=== PATIENT | female | born 1965 | race Caucasian/White ===

== ENCOUNTER 2017-09-02 18:05 | Inpatient (IN) | payer SELFPAY ==
[~2017-09-02] VITALS: Ht 172.7 cm; Wt 60.8 kg
[~2017-09-02 18:05] MED LIST: MOTRIN800 MG PO; NAPROSYN500 MG PO; PREDNICOT20 MG PO; ULTRAM50 MG PO; VIBRAMYCIN100 MG PO; VOLTAREN50 MG PO
[2017-09-02 18:11] VITALS: BP 136/57
[2017-09-02 18:51] LABS: BASO % 0.3 % (0.0-1.0); EOS # 0.2 10*3/uL (0.0-0.4); EOS % 2.1 % (1.0-4.0); HEMATOCRIT 43.8 % (37.0-47.0); HEMOGLOBIN 15.2 g/dl (12.0-16.0); LYMPH # 0.6 10*3/uL (1.3-4.4); LYMPH % 5.3 % (27.0-41.0); MEAN CELL VOLUME 89.4 fl (81.0-99.0); MEAN CORPUSCULAR HGB CONC 34.7 g/dl (33.0-37.0); MEAN PLATELET VOLUME 9.9 fl (9.6-12.3); MONO # 0.6 10*3/uL (0.1-1.0); MONO % 5.2 % (3.0-9.0); NEUT # 9.8 10*3/uL (2.3-7.9); NEUT % 86.7 % (47.0-73.0); PLATELET COUNT AUTOMATED 232 10*3/uL (130-400); RED CELL DISTRI WIDTH 12.8 % (0-14.5); WHITE BLOOD COUNT 11.3 10*3/uL (4.8-10.8)
[2017-09-02 19:06] LABS: ALBUMIN 3.5 gm/dl (3.1-4.5); ALKALINE PHOSPHATASE 55 U/L (45-117); BUN 5 mg/dl (7-24); CHLORIDE 104 mmol/L (98-107); CREATININE 0.75 mg/dL (0.55-1.02); POTASSIUM 3.8 mmol/L (3.5-5.1); SGOT/AST 20 IU/L (3-35); SGPT/ALT 17 U/L (12-78); SODIUM 137 mmol/L (136-145); TOTAL PROTEIN 6.6 gm/dL (6.4-8.2)
[2017-09-02 19:55] VITALS: BP 122/65
[2017-09-02 20:45] VITALS: BP 125/65
[2017-09-03] VITALS: BP 107/54
[2017-09-03 02:20] LABS: BILIRUBIN NEGATIVE (NEGATIVE); BLOOD TRACE-INTACT (NEGATIVE); CLARITY CLEAR (CLEAR); COLOR YELLOW (YELLOW); GLUCOSE NEGATIVE (NEGATIVE); KETONE NEGATIVE (NEGATIVE); LEUKO ESTERASE NEGATIVE (NEGATIVE); NITRITE NEGATIVE (NEGATIVE); PH 5.5 (5.0-9.0); UROBILINOGEN 0.2 E.U./dl (0.2-1.0)
[2017-09-03 02:30] LABS: EPITHELIAL CELLS 15-20
[2017-09-03 02:31] LABS: BACTERIA TRACE
[2017-09-03 07:04] LABS: BASO % 0.2 % (0.0-1.0); EOS # 0.1 10*3/uL (0.0-0.4); EOS % 0.6 % (1.0-4.0); LYMPH # 1.2 10*3/uL (1.3-4.4); LYMPH % 9.9 % (27.0-41.0); MEAN CELL VOLUME 89.9 fl (81.0-99.0); MEAN CORPUSCULAR HGB 30.8 pg (27.0-31.0); MEAN CORPUSCULAR HGB CONC 34.2 g/dl (33.0-37.0); MEAN PLATELET VOLUME 9.8 fl (9.6-12.3); MONO # 0.9 10*3/uL (0.1-1.0); MONO % 6.9 % (3.0-9.0); NEUT # 10.3 10*3/uL (2.3-7.9); NEUT % 81.8 % (47.0-73.0); PLATELET COUNT AUTOMATED 182 10*3/uL (130-400); RED BLOOD COUNT 4.06 10*6/uL (4.10-5.10); RED CELL DISTRI WIDTH 12.9 % (0-14.5); WHITE BLOOD COUNT 12.5 10*3/uL (4.8-10.8)
[2017-09-03 07:08] LABS: HEMATOCRIT 36.5 % (37.0-47.0); HEMOGLOBIN 12.5 g/dl (12.0-16.0)
[2017-09-03 07:26] LABS: BUN 8 mg/dl (7-24); CHLORIDE 107 mmol/L (98-107); CHOLESTEROL 91 mg/dL (<200); CREATININE 0.71 mg/dL (0.55-1.02); POTASSIUM 4.1 mmol/L (3.5-5.1); SODIUM 140 mmol/L (136-145); TRIGLYCERIDES 35 mg/dl (<150); VLDL CHOLESTEROL 7 mg/dL (6-40)
[2017-09-03 07:28] LABS: ACT PARTIAL THROMBO TIME 31.4 SECONDS (20.8-31.5); INTERNATIONAL NORM RATIO 1.3 (2.0-3.5)
[2017-09-03 07:35] LABS: HDL CHOLESTEROL 38 mg/dl (40-60); LDL CHOLESTEROL 46 mg/dL (9-159); THYROID STIM HORMONE (HS) 0.272 uIU/ml (0.358-4.75)
[2017-09-03 08:00] VITALS: BP 112/66
[2017-09-03 08:15] LABS: VITAMIN D, 25-HYDROXY 11.1 ng/mL (30-100)
[2017-09-03 12:00] VITALS: BP 153/79
[2017-09-03 16:00] VITALS: BP 120/67
[2017-09-03 20:00] VITALS: BP 93/46
[2017-09-04] VITALS: BP 120/64
[2017-09-04 08:00] VITALS: BP 122/78
[2017-09-04 09:11] LABS: BASO % 0.3 % (0.0-1.0); EOS # 0.1 10*3/uL (0.0-0.4); EOS % 0.9 % (1.0-4.0); HEMATOCRIT 31.4 % (37.0-47.0); HEMOGLOBIN 10.9 g/dl (12.0-16.0); LYMPH # 0.7 10*3/uL (1.3-4.4); LYMPH % 9.8 % (27.0-41.0); MEAN CELL VOLUME 89.7 fl (81.0-99.0); MEAN CORPUSCULAR HGB 31.1 pg (27.0-31.0); MEAN CORPUSCULAR HGB CONC 34.7 g/dl (33.0-37.0); MEAN PLATELET VOLUME 9.6 fl (9.6-12.3); MONO # 0.4 10*3/uL (0.1-1.0); MONO % 5.6 % (3.0-9.0); NEUT # 6.3 10*3/uL (2.3-7.9); NEUT % 83.1 % (47.0-73.0); PLATELET COUNT AUTOMATED 166 10*3/uL (130-400); RED CELL DISTRI WIDTH 13.1 % (0-14.5); WHITE BLOOD COUNT 7.6 10*3/uL (4.8-10.8)
[2017-09-04 09:25] LABS: ALKALINE PHOSPHATASE 44 U/L (45-117); BUN 5 mg/dl (7-24); CHLORIDE 106 mmol/L (98-107); CREATININE 0.67 mg/dL (0.55-1.02); POTASSIUM 3.2 mmol/L (3.5-5.1); SGOT/AST 11 IU/L (3-35); SGPT/ALT 14 U/L (12-78); SODIUM 137 mmol/L (136-145); TOTAL PROTEIN 5.9 gm/dL (6.4-8.2)
[2017-09-04] MEDS ORDERED: LEVAQUIN750 M1 PO (10:51)
[2017-09-04] MEDS ORDERED: PAROXETINE HCL20 MG PO (10:53)
[2017-09-04] MEDS ORDERED: VITAMIN D5000 UNI1 PO (10:53)
[2017-09-04] MEDS ORDERED: IBU800 M1 PO (10:53)
[2017-09-04] MEDS ORDERED: Vitamin D PO (10:53)
[2017-09-04] MEDS ORDERED: PREDNISONE10 MG PO (11:12)
== END 2017-09-04 12:29 | disposition home or self-care (01) | DRG 871 ==
LOC: ED 18:05 → 4E 19:47 → EDHOLD 19:47 → 4E 20:08
PROVIDERS: Internal Medicine; Nurse Practitioner Family; Registered Nurse
DX: A41.9 Sepsis, unspecified organism (principal); J15.6 Pneumonia due to other Gram-negative bacteria; G93.41 Metabolic encephalopathy; F32.9 Major depressive disorder, single episode, unspecified; E55.9 Vitamin D deficiency, unspecified; E87.6 Hypokalemia; R09.02 Hypoxemia; F41.9 Anxiety disorder, unspecified; J44.9 Chronic obstructive pulmonary disease, unspecified; M25.551 Pain in right hip; M25.552 Pain in left hip; F17.210 Nicotine dependence, cigarettes, uncomplicated; Z98.891 History of uterine scar from previous surgery; Z98.51 Tubal ligation status; Z87.81 Personal history of (healed) traumatic fracture; Z71.6 Tobacco abuse counseling; Z79.899 Other long term (current) drug therapy

== ENCOUNTER → 2017-09-11 | Outpatient (CLI) | payer SELFPAY ==
[~2017-09-11] MED LIST changes: +IBU800 M1 PO; +LEVAQUIN750 M1 PO; +PAROXETINE HCL20 MG PO; +PREDNISONE10 MG PO; +VITAMIN D5000 UNI1 PO; +Vitamin D PO
== END | disposition home or self-care (01) ==
LOC: RESCLI 03:53
DX: Z09 Encounter for follow-up examination after completed treatment for conditions other than malignant neoplasm (principal); Z12.31 Encounter for screening mammogram for malignant neoplasm of breast; J43.9 Emphysema, unspecified; E55.9 Vitamin D deficiency, unspecified; E87.6 Hypokalemia; D64.9 Anemia, unspecified; R63.6 Underweight; M25.552 Pain in left hip; M25.551 Pain in right hip; G47.00 Insomnia, unspecified; F41.1 Generalized anxiety disorder; I95.1 Orthostatic hypotension; E86.0 Dehydration; R00.0 Tachycardia, unspecified; Z76.89 Persons encountering health services in other specified circumstances; Z71.6 Tobacco abuse counseling; Z72.0 Tobacco use

== ENCOUNTER 2017-12-16 18:02 | Emergency (ER) | payer SELFPAY ==
[~2017-12-16] VITALS: Ht 172.7 cm; Wt 45.4 kg
[2017-12-16 18:27] LABS: HEMATOCRIT 45.3 % (37.0-47.0); HEMOGLOBIN 15.2 g/dl (12.0-16.0); MEAN CELL VOLUME 91.5 fl (81.0-99.0); MEAN CORPUSCULAR HGB 30.7 pg (27.0-31.0); MEAN CORPUSCULAR HGB CONC 33.6 g/dl (33.0-37.0); MEAN PLATELET VOLUME 10.1 fl (9.6-12.3); PLATELET COUNT AUTOMATED 431 10*3/uL (130-400); RED BLOOD COUNT 4.95 10*6/uL (4.10-5.10); RED CELL DISTRI WIDTH 14.1 % (0-14.5); WHITE BLOOD COUNT 12.9 10*3/uL (4.8-10.8)
[2017-12-16 18:42] LABS: ALBUMIN 4.3 gm/dl (3.1-4.5); BUN 4 mg/dl (7-24); CHLORIDE 103 mmol/L (98-107); CREATININE 1.07 mg/dL (0.55-1.02); POTASSIUM 3.1 mmol/L (3.5-5.1); SGOT/AST 26 IU/L (3-35); SGPT/ALT 20 U/L (12-78); SODIUM 141 mmol/L (136-145); TOTAL PROTEIN 8.2 gm/dL (6.4-8.2)
[2017-12-16 18:43] LABS: ALKALINE PHOSPHATASE 77 U/L (45-117)
[2017-12-16 18:46] LABS: BASOPHILS 1 % (0-1); PLATELET SUFFICIENCY NORMAL (NORMAL); TOTAL CELLS COUNTED 100 #CELLS
[2017-12-16 18:47] LABS: BURR CELLS FEW
[2017-12-16 21:26] LABS: ACT PARTIAL THROMBO TIME 23.5 SECONDS (20.8-31.5)
[2017-12-16 21:34] LABS: TROPONIN I 0.024 ng/ml (<0.045)
[2017-12-16 21:35] LABS: ACETAMINOPHEN (TYLENOL) < 2.0 ug/ml (10-30); ETHYL ALCOHOL < 3.0 mg/dl (<3)
[2017-12-16 22:51] LABS: URINE AMPHETAMINES > 1000 (1000ng/ml); URINE BARBITURATES < 200 (200ng/ml); URINE BENZODIAZEPINES < 200 (200ng/ml); URINE CANNABINOIDS (THC) > 50 (50ng/ml); URINE COCAINE > 300 (300ng/ml); URINE METHADONE < 300 (300ng/ml); URINE OPIATES > 300 (300ng/ml); URINE PHENCYCLIDINE < 25 (25ng/ml)
[2017-12-16 23:04] LABS: BILIRUBIN NEGATIVE (NEGATIVE); BLOOD 1+ (NEGATIVE); CLARITY SL CLOUDY (CLEAR); COLOR YELLOW (YELLOW); GLUCOSE NEGATIVE (NEGATIVE); KETONE TRACE (NEGATIVE); LEUKO ESTERASE NEGATIVE (NEGATIVE); NITRITE NEGATIVE (NEGATIVE); PH 5.5 (5.0-9.0); SPECIFIC GRAVITY >= 1.030 (1.005-1.030); UROBILINOGEN 0.2 E.U./dl (0.2-1.0)
[2017-12-16 23:09] LABS: MUCOUS 1+
[2017-12-17 00:30] VITALS: BP 142/80
== END 2017-12-17 02:53 | disposition short-term general hospital (02) ==
LOC: ED 18:02
PROVIDERS: Emergency Medicine; Student in an Organized Health Care Education/Training Program
DX: T40.1X1A Poisoning by heroin, accidental (unintentional), initial encounter (principal); G93.41 Metabolic encephalopathy; J44.9 Chronic obstructive pulmonary disease, unspecified; F17.200 Nicotine dependence, unspecified, uncomplicated; Z98.890 Other specified postprocedural states; Z98.51 Tubal ligation status; Z79.899 Other long term (current) drug therapy; Y92.9 Unspecified place or not applicable

== ENCOUNTER 2018-04-30 12:05 | Inpatient (IN) | payer BC ==
[2018-04-30 13:00] VITALS: BP 140/82
[2018-04-30 14:01] LABS: BASO % 0.4 % (0.0-1.0); EOS % 0.1 % (1.0-4.0); HEMATOCRIT 40.1 % (37.0-47.0); HEMOGLOBIN 13.8 g/dl (12.0-16.0); LYMPH # 1.5 10*3/uL (1.3-4.4); LYMPH % 21.7 % (27.0-41.0); MEAN CELL VOLUME 89.3 fl (81.0-99.0); MEAN CORPUSCULAR HGB 30.7 pg (27.0-31.0); MEAN CORPUSCULAR HGB CONC 34.4 g/dl (33.0-37.0); MEAN PLATELET VOLUME 9.2 fl (9.6-12.3); MONO # 0.4 10*3/uL (0.1-1.0); MONO % 6.4 % (3.0-9.0); NEUT # 4.9 10*3/uL (2.3-7.9); NEUT % 71.1 % (47.0-73.0); PLATELET COUNT AUTOMATED 347 10*3/uL (130-400); RED BLOOD COUNT 4.49 10*6/uL (4.10-5.10); RED CELL DISTRI WIDTH 13.2 % (0-14.5); WHITE BLOOD COUNT 6.9 10*3/uL (4.8-10.8)
[2018-04-30 14:24] LABS: ALBUMIN 3.9 gm/dl (3.1-4.5); ALKALINE PHOSPHATASE 59 U/L (45-117); BUN 6 mg/dl (7-24); CHLORIDE 107 mmol/L (98-107); CREATININE 0.81 mg/dL (0.55-1.02); POTASSIUM 4.3 mmol/L (3.5-5.1); SGOT/AST 12 IU/L (3-35); SGPT/ALT 18 U/L (12-78); SODIUM 141 mmol/L (136-145); TOTAL PROTEIN 7.4 gm/dL (6.4-8.2)
[2018-04-30 14:27] LABS: ETHYL ALCOHOL < 3.0 mg/dl (<3)
[2018-04-30 15:25] LABS: BILIRUBIN NEGATIVE (NEGATIVE); BLOOD TRACE-LYSED (NEGATIVE); CLARITY CLEAR (CLEAR); COLOR YELLOW (YELLOW); GLUCOSE NEGATIVE (NEGATIVE); KETONE NEGATIVE (NEGATIVE); LEUKO ESTERASE NEGATIVE (NEGATIVE); NITRITE NEGATIVE (NEGATIVE); SPECIFIC GRAVITY <= 1.005 (1.005-1.030); UROBILINOGEN 0.2 E.U./dl (0.2-1.0)
[2018-04-30 15:40] LABS: URINE BARBITURATES < 200 (200ng/ml); URINE BENZODIAZEPINES < 200 (200ng/ml); URINE COCAINE < 300 (300ng/ml); URINE METHADONE < 300 (300ng/ml); URINE OPIATES > 300 (300ng/ml)
[2018-04-30 15:55] LABS: URINE AMPHETAMINES < 1000 (1000ng/ml); URINE CANNABINOIDS (THC) > 50 (50ng/ml)
[2018-04-30 16:00] VITALS: BP 142/76
[2018-04-30 16:01] LABS: BACTERIA TRACE; WBC 0-2 wbc/hpf (0-5)
[2018-04-30 16:03] LABS: URINE PHENCYCLIDINE < 25 (25ng/ml)
[2018-04-30 20:00] VITALS: BP 136/82
[2018-05-01] VITALS: BP 113/59
[2018-05-01 07:53] LABS: BASO % 0.6 % (0.0-1.0); EOS # 0.1 10*3/uL (0.0-0.4); EOS % 1.9 % (1.0-4.0); HEMOGLOBIN 13.5 g/dl (12.0-16.0); LYMPH # 2.1 10*3/uL (1.3-4.4); LYMPH % 32.3 % (27.0-41.0); MEAN CELL VOLUME 89.9 fl (81.0-99.0); MEAN CORPUSCULAR HGB 30.3 pg (27.0-31.0); MEAN CORPUSCULAR HGB CONC 33.8 g/dl (33.0-37.0); MEAN PLATELET VOLUME 9.6 fl (9.6-12.3); MONO # 0.5 10*3/uL (0.1-1.0); MONO % 7.6 % (3.0-9.0); NEUT # 3.7 10*3/uL (2.3-7.9); NEUT % 57.4 % (47.0-73.0); PLATELET COUNT AUTOMATED 347 10*3/uL (130-400); RED BLOOD COUNT 4.45 10*6/uL (4.10-5.10); RED CELL DISTRI WIDTH 13.2 % (0-14.5); WHITE BLOOD COUNT 6.5 10*3/uL (4.8-10.8)
[2018-05-01 08:00] VITALS: BP 93/49
[2018-05-01 08:17] LABS: ALBUMIN 3.4 gm/dl (3.1-4.5); ALKALINE PHOSPHATASE 54 U/L (45-117); BUN 8 mg/dl (7-24); CHLORIDE 107 mmol/L (98-107); CHOLESTEROL 119 mg/dL (<200); CREATININE 0.88 mg/dL (0.55-1.02); FREE T4 0.96 ng/dl (0.76-1.46); HDL CHOLESTEROL 44 mg/dl (40-60); LDL CHOLESTEROL 59 mg/dL (9-159); POTASSIUM 4.1 mmol/L (3.5-5.1); SGOT/AST 11 IU/L (3-35); SGPT/ALT 16 U/L (12-78); SODIUM 139 mmol/L (136-145); TOTAL PROTEIN 6.4 gm/dL (6.4-8.2); TRIGLYCERIDES 81 mg/dl (<150); VLDL CHOLESTEROL 16 mg/dL (6-40)
[2018-05-01 10:39] LABS: VITAMIN D, 25-HYDROXY 24.2 ng/mL (30-100)
[2018-05-01 12:00] VITALS: BP 111/48
[2018-05-01 16:00] VITALS: BP 96/45
[2018-05-01 20:00] VITALS: BP 106/54
[2018-05-02] VITALS: BP 92/62
[2018-05-02 08:00] VITALS: BP 99/61
[2018-05-02 12:00] VITALS: BP 96/68
[2018-05-02 16:00] VITALS: BP 114/78
[2018-05-02 20:00] VITALS: BP 94/43
[2018-05-03] VITALS: BP 84/44
[2018-05-03 08:00] VITALS: BP 106/60
[2018-05-03 08:05] VITALS: BP 110/64
[2018-05-03] MEDS ORDERED: ATARAX,VISTARIL50 MG PO (09:15)
[2018-05-03] MEDS ORDERED: TRAZODONE50 MG PO (10:34)
== END 2018-05-03 12:35 | disposition home or self-care (01) | DRG 897 ==
LOC: 4E 12:05
PROVIDERS: Registered Nurse
DX: F11.23 Opioid dependence with withdrawal (principal); F12.90 Cannabis use, unspecified, uncomplicated; E55.9 Vitamin D deficiency, unspecified; J44.9 Chronic obstructive pulmonary disease, unspecified; F32.9 Major depressive disorder, single episode, unspecified; Z87.01 Personal history of pneumonia (recurrent); Z98.891 History of uterine scar from previous surgery; Z98.51 Tubal ligation status; Z72.0 Tobacco use; Z80.0 Family history of malignant neoplasm of digestive organs; Z71.6 Tobacco abuse counseling

== ENCOUNTER 2018-11-24 01:57 | Emergency (ER) | payer BC ==
[~2018-11-24] VITALS: Ht 172.7 cm; Wt 59.0 kg
[~2018-11-24 01:57] MED LIST changes: +ATARAX,VISTARIL50 MG PO; +TRAZODONE50 MG PO
[2018-11-24] MEDS ORDERED: PROPRANOLOL HCL10 MG PO (02:00)
[2018-11-24] MEDS ORDERED: LORAZEPAM2 MG PO (02:00)
[2018-11-24] MEDS ORDERED: BUSPIRONE HCL10 MG PO (02:01)
[2018-11-24] MEDS ORDERED: QUETIAPINE FUMA50 M1 PO (02:01)
[2018-11-24 02:24] LABS: BILIRUBIN NEGATIVE (NEGATIVE); BLOOD NEGATIVE (NEGATIVE); CLARITY CLEAR (CLEAR); COLOR STRAW (YELLOW); GLUCOSE NEGATIVE (NEGATIVE); KETONE NEGATIVE (NEGATIVE); LEUKO ESTERASE NEGATIVE (NEGATIVE); NITRITE NEGATIVE (NEGATIVE); PH 5.5 (5.0-9.0); SPECIFIC GRAVITY <= 1.005 (1.005-1.030); UROBILINOGEN 0.2 E.U./dl (0.2-1.0)
[2018-11-24 02:32] LABS: BACTERIA TRACE; EPITHELIAL CELLS 21-30
[2018-11-24 03:16] LABS: URINE AMPHETAMINES < 1000 (1000ng/ml); URINE BARBITURATES < 200 (200ng/ml); URINE BENZODIAZEPINES > 200 (200ng/ml); URINE CANNABINOIDS (THC) > 50 (50ng/ml); URINE COCAINE > 300 (300ng/ml); URINE METHADONE < 300 (300ng/ml); URINE OPIATES < 300 (300ng/ml)
[2018-11-24 03:17] LABS: BASO % 0.6 % (0.0-1.0); EOS # 0.2 10*3/uL (0.0-0.4); EOS % 3.2 % (1.0-4.0); HEMATOCRIT 38.9 % (37.0-47.0); HEMOGLOBIN 13.2 g/dl (12.0-16.0); LYMPH # 2.1 10*3/uL (1.3-4.4); LYMPH % 30.3 % (27.0-41.0); MEAN CELL VOLUME 84.2 fl (81.0-99.0); MEAN CORPUSCULAR HGB 28.6 pg (27.0-31.0); MEAN CORPUSCULAR HGB CONC 33.9 g/dl (33.0-37.0); MEAN PLATELET VOLUME 9.6 fl (9.6-12.3); MONO # 0.4 10*3/uL (0.1-1.0); MONO % 5.8 % (3.0-9.0); NEUT # 4.1 10*3/uL (2.3-7.9); PLATELET COUNT AUTOMATED 309 10*3/uL (130-400); RED BLOOD COUNT 4.62 10*6/uL (4.10-5.10); RED CELL DISTRI WIDTH 15.8 % (0-14.5); WHITE BLOOD COUNT 6.9 10*3/uL (4.8-10.8)
[2018-11-24 03:18] LABS: URINE PHENCYCLIDINE < 25 (25ng/ml)
[2018-11-24 03:32] LABS: ALBUMIN 3.8 gm/dl (3.1-4.5); ALKALINE PHOSPHATASE 62 U/L (45-117); BUN 4 mg/dl (7-24); CHLORIDE 106 mmol/L (98-107); CREATININE 0.76 mg/dL (0.55-1.02); SGOT/AST 10 IU/L (3-35); SGPT/ALT 12 U/L (12-78); SODIUM 141 mmol/L (136-145)
[2018-11-24] MEDS ORDERED: NORCO 5-325 TA1 EACH PO (07:06)
[2018-11-24 07:20] VITALS: BP 117/67
[2018-12-03] MEDS ORDERED: KETOROLAC10 MG PO (13:16)
[2018-12-03] MEDS ORDERED: FLOMAX0.4 MG PO (13:16)
== END 2018-11-24 07:19 | disposition home or self-care (01) ==
LOC: ED 01:57
PROVIDERS: Emergency Medicine
DX: N13.2 Hydronephrosis with renal and ureteral calculous obstruction (principal)

== ENCOUNTER 2018-12-18 19:28 | Emergency (ER) | payer BC, OTHER ==
[~2018-12-18] VITALS: Ht 172.7 cm; Wt 56.7 kg
--- NOTE | ~2018-12-18 | EKG ---
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
[~2018-12-18 19:28] MED LIST changes: +BUSPIRONE HCL10 MG PO; +FLOMAX0.4 MG PO; +KETOROLAC10 MG PO; +LORAZEPAM2 MG PO; +NORCO 5-325 TA1 EACH PO; +PROPRANOLOL HCL10 MG PO; +QUETIAPINE FUMA50 M1 PO
[2018-12-18 19:55] LABS: BASO % 0.3 % (0.0-1.0); EOS # 0.1 10*3/uL (0.0-0.4); EOS % 0.8 % (1.0-4.0); HEMATOCRIT 41.5 % (37.0-47.0); HEMOGLOBIN 13.8 g/dl (12.0-16.0); LYMPH # 1.2 10*3/uL (1.3-4.4); LYMPH % 8.6 % (27.0-41.0); MEAN CELL VOLUME 87.9 fl (81.0-99.0); MEAN CORPUSCULAR HGB 29.2 pg (27.0-31.0); MEAN CORPUSCULAR HGB CONC 33.3 g/dl (33.0-37.0); MEAN PLATELET VOLUME 9.2 fl (9.6-12.3); MONO # 0.6 10*3/uL (0.1-1.0); MONO % 4.4 % (3.0-9.0); NEUT # 11.8 10*3/uL (2.3-7.9); NEUT % 85.5 % (47.0-73.0); PLATELET COUNT AUTOMATED 338 10*3/uL (130-400); RED BLOOD COUNT 4.72 10*6/uL (4.10-5.10); RED CELL DISTRI WIDTH 17.6 % (0-14.5); WHITE BLOOD COUNT 13.8 10*3/uL (4.8-10.8)
[2018-12-18 20:14] LABS: ACT PARTIAL THROMBO TIME 26.8 SECONDS (20.0-32.1)
[2018-12-18 20:15] LABS: ALBUMIN 3.5 gm/dl (3.1-4.5); ALKALINE PHOSPHATASE 92 U/L (45-117); BUN 11 mg/dl (7-24); CHLORIDE 104 mmol/L (98-107); CREATININE 1.07 mg/dL (0.55-1.02); LIPASE 295 U/L (73-393); POTASSIUM 3.5 mmol/L (3.5-5.1); SGOT/AST 14 IU/L (3-35); SGPT/ALT 15 U/L (12-78); SODIUM 137 mmol/L (136-145); TOTAL PROTEIN 7.3 gm/dL (6.4-8.2)
[2018-12-18 20:17] LABS: TROPONIN I < 0.015 ng/ml (<0.045)
[2018-12-19 02:49] VITALS: BP 102/58
== END 2018-12-19 04:01 | disposition home or self-care (01) ==
LOC: ED 19:28
PROVIDERS: Student in an Organized Health Care Education/Training Program
DX: T40.4X1A Poisoning by other synthetic narcotics, accidental (unintentional), initial encounter (principal); J44.9 Chronic obstructive pulmonary disease, unspecified; F17.200 Nicotine dependence, unspecified, uncomplicated; Z79.899 Other long term (current) drug therapy; Z87.442 Personal history of urinary calculi; Z98.51 Tubal ligation status; Y92.098 Other place in other non-institutional residence as the place of occurrence of the external cause

== ENCOUNTER → 2019-01-14 | Outpatient (CLI) | payer OTHER | END | disposition home or self-care (01) | LOC: CT 01-10 10:00 | DX: R31.9 Hematuria, unspecified (principal) ==

== ENCOUNTER 2020-03-09 10:56 | Inpatient (IN) | payer OTHER ==
[~2020-03-09] VITALS: Ht 152.4 cm; Wt 56.0 kg
[2020-03-09 11:07] VITALS: BP 135/89
[2020-03-09 11:57] LABS: URINE AMPHETAMINES < 1000 (1000ng/ml); URINE BARBITURATES < 200 (200ng/ml); URINE BENZODIAZEPINES < 200 (200ng/ml); URINE CANNABINOIDS (THC) > 50 (50ng/ml); URINE COCAINE < 300 (300ng/ml); URINE METHADONE < 300 (300ng/ml); URINE OPIATES > 300 (300ng/ml)
[2020-03-09 11:58] LABS: URINE PHENCYCLIDINE < 25 (25ng/ml)
[2020-03-09 12:04] LABS: BACTERIA 2+; BILIRUBIN NEGATIVE; BLOOD NEGATIVE (NEGATIVE); CLARITY CLEAR (CLEAR); COLOR YELLOW (YELLOW); GLUCOSE NEGATIVE; KETONE NEGATIVE; LEUKO ESTERASE NEGATIVE (NEGATIVE); NITRITE NEGATIVE (NEGATIVE); SPECIFIC GRAVITY 1.025 (1.001-1.030)
[2020-03-09 13:22] VITALS: BP 147/88
[2020-03-09] MEDS ORDERED: BUSPAR5 MG PO (13:31)
[2020-03-09] MEDS ORDERED: SEROQUEL25 MG PO (13:32)
[2020-03-09 13:46] LABS: BASO % 0.6 % (0.0-1.0); EOS # 0.4 10*3/uL (0.0-0.4); EOS % 5.3 % (1.0-4.0); HEMATOCRIT 47.1 % (37.0-47.0); LYMPH # 2.3 10*3/uL (1.3-4.4); LYMPH % 32.3 % (27.0-41.0); MEAN CELL VOLUME 88.2 fl (81.0-99.0); MEAN CORPUSCULAR HGB 29.2 pg (27.0-31.0); MEAN CORPUSCULAR HGB CONC 33.1 g/dl (33.0-37.0); MEAN PLATELET VOLUME 9.5 fl (9.6-12.3); MONO # 0.4 10*3/uL (0.1-1.0); MONO % 5.9 % (3.0-9.0); NEUT # 3.9 10*3/uL (2.3-7.9); NEUT % 55.8 % (47.0-73.0); PLATELET COUNT AUTOMATED 429 10*3/uL (130-400); RED BLOOD COUNT 5.34 10*6/uL (4.10-5.10); RED CELL DISTRI WIDTH 13.6 % (0-14.5)
[2020-03-09 14:00] LABS: INTERNATIONAL NORM RATIO 1.1 (2.0-3.5)
[2020-03-09 14:12] LABS: ALBUMIN 4.4 gm/dl (3.1-4.5); ALKALINE PHOSPHATASE 80 U/L (45-117); BUN 8 mg/dl (7-24); CHLORIDE 103 mmol/L (98-107); CREATININE 0.85 mg/dL (0.55-1.02); POTASSIUM 3.7 mmol/L (3.5-5.1); SGOT/AST 8 IU/L (3-35); SGPT/ALT 14 U/L (12-78); SODIUM 136 mmol/L (136-145); TOTAL PROTEIN 8.1 gm/dL (6.4-8.2)
[2020-03-09 14:15] LABS: ETHYL ALCOHOL < 3.0 mg/dl (<3)
[2020-03-09 16:00] VITALS: BP 110/55
[2020-03-09 20:00] VITALS: BP 141/82
[2020-03-10] VITALS: BP 129/64
[2020-03-10 08:00] VITALS: BP 116/66
[2020-03-10 12:00] VITALS: BP 119/70
[2020-03-10 16:05] VITALS: BP 121/84
[2020-03-10 20:00] VITALS: BP 120/76
[2020-03-11] VITALS: BP 102/58
[2020-03-11 08:00] VITALS: BP 118/72
[2020-03-11 12:00] VITALS: BP 102/62; BP 137/72
[2020-03-11 16:00] VITALS: BP 124/69
[2020-03-11 20:00] VITALS: BP 104/52
[2020-03-12] VITALS: BP 101/58
[2020-03-12 05:49] LABS: CREATININE 0.76 mg/dL (0.55-1.02)
[2020-03-12 06:03] LABS: BASO % 0.7 % (0.0-1.0); EOS # 0.4 10*3/uL (0.0-0.4); EOS % 6.4 % (1.0-4.0); HEMATOCRIT 41.7 % (37.0-47.0); LYMPH # 2.7 10*3/uL (1.3-4.4); LYMPH % 44.6 % (27.0-41.0); MEAN CELL VOLUME 89.1 fl (81.0-99.0); MEAN CORPUSCULAR HGB 29.5 pg (27.0-31.0); MEAN CORPUSCULAR HGB CONC 33.1 g/dl (33.0-37.0); MEAN PLATELET VOLUME 9.8 fl (9.6-12.3); MONO # 0.5 10*3/uL (0.1-1.0); MONO % 7.4 % (3.0-9.0); NEUT # 2.5 10*3/uL (2.3-7.9); NEUT % 40.7 % (47.0-73.0); PLATELET COUNT AUTOMATED 330 10*3/uL (130-400); RED BLOOD COUNT 4.68 10*6/uL (4.10-5.10); RED CELL DISTRI WIDTH 13.7 % (0-14.5); WHITE BLOOD COUNT 6.1 10*3/uL (4.8-10.8)
[2020-03-12 08:00] VITALS: BP 108/64
[2020-03-12] MEDS ORDERED: TRAZODONE50 MG PO (10:19)
== END 2020-03-12 10:29 | disposition home or self-care (01) | DRG 773 ==
LOC: ED 10:56 → EDHOLD 12:35 → 5E 12:35 → 4E 03-11 13:44
PROVIDERS: Emergency Medicine; Internal Medicine; ADMIT Family Medicine; ATTEND Family Medicine
DX: F11.23 Opioid dependence with withdrawal (principal); F17.210 Nicotine dependence, cigarettes, uncomplicated; J44.9 Chronic obstructive pulmonary disease, unspecified; F32.9 Major depressive disorder, single episode, unspecified; D47.3 Essential (hemorrhagic) thrombocythemia; G25.81 Restless legs syndrome; G47.00 Insomnia, unspecified; F12.10 Cannabis abuse, uncomplicated; Z71.6 Tobacco abuse counseling; Z98.51 Tubal ligation status; Z98.891 History of uterine scar from previous surgery; Z80.0 Family history of malignant neoplasm of digestive organs; Z87.442 Personal history of urinary calculi

== ENCOUNTER 2020-05-20 17:59 | Emergency (ER) | payer OTHER ==
[~2020-05-20] VITALS: Wt 49.9 kg
[~2020-05-20 17:59] MED LIST changes: +BUSPAR5 MG PO; +SEROQUEL25 MG PO
[2020-05-20 18:40] LABS: ABG BASE EXCESS -16.4 mmol/L (-2.0-2.0)
[2020-05-20 18:41] LABS: ARTERIAL BLOOD GAS PH 6.94 (7.35-7.45)
[2020-05-20 18:56] LABS: ABG BASE EXCESS -9.7 mmol/L (-2.0-2.0)
[2020-05-20 18:59] LABS: ARTERIAL BLOOD GAS PH 7.06 (7.35-7.45)
[2020-05-20 19:10] VITALS: BP 111/63
[2020-05-20 19:27] LABS: URINE AMPHETAMINES < 1000 (1000ng/ml); URINE BARBITURATES < 200 (200ng/ml); URINE BENZODIAZEPINES > 200 (200ng/ml); URINE CANNABINOIDS (THC) > 50 (50ng/ml); URINE COCAINE > 300 (300ng/ml); URINE METHADONE < 300 (300ng/ml); URINE OPIATES > 300 (300ng/ml)
[2020-05-20 19:30] LABS: URINE PHENCYCLIDINE < 25 (25ng/ml)
== END 2020-05-20 19:15 | disposition short-term general hospital (02) ==
LOC: ED 17:59
PROVIDERS: Emergency Medicine
DX: I46.9 Cardiac arrest, cause unspecified (principal); Z79.899 Other long term (current) drug therapy